=== PATIENT | male | born 1980 | race Hispanic/Latino ===

== ENCOUNTER → 2020-01-16 | Day surgery (SDC) | payer OTHER ==
[~2020-01-16] MED LIST: ACETAMINOPHEN 1000 MG/100 ML IV ONE; BACITRACIN 50,000 UNIT VIAL ONE; BUPIVACAINE HCL 0.5% INJ 30 ML VIAL INJ ONE; CEFAZOLIN SOD 1 GM/NS 50ML 100 ML IV ONE; DEXAMETHASONE SOD PHOS INJ 4 MG/ML VIAL ONE; FAMOTIDINE 20 MG/2 ML VIAL IV ONE; FENTANYL CITRATE/PF 100MCG/2 ML INJ ONE; GLYCOPYRROLATE INJ 0.2 MG/ML VIAL ONE; HYDROCODONE/APAP 5MG-325MG TAB ONE; IBUPROFEN 800MG/ 200ML 200 ML IV ONE; IBUPROFEN400 MG PO; LIDOCAINE HCL (LTA) 4 ML SOLN ONE; LIDOCAINE HCL 2% LOCAL INJ 5 ML SDV VIAL INJ ONE; MIDAZOLAM HCL 2 MG/2 ML VIAL ONE; MUPIROCIN 2% OINT 22 GM TUBE ONE; NEOSTIGMINE 1 MG/ML 10ML VIAL ONE; ONDANSETRON HCL INJ 2MG/ML 2ML 2 MG/ML VIAL ONE; PROPOFOL IV EMULSION 10 MG/ML 20 ML VIAL ONE; ROCURONIUM BROMIDE 10 MG/ML 5ML VIAL ONE; SEVOFLURANE INHAL SOLN 250 ML PEN BTL ONE; TYLENOL WITH C1 EACH PO
--- NOTE | 2020-01-16 07:10 | NUR ---
SPIRITUAL CARE - Pre-Surgery Assessment: Pt in bed. Pt's at bedside. Pt reported supportive attention from family and friends. Intervention: I provided pastoral presence, hospitality, and sympathetic listening. I acquainted pt with availability of application consultant while hospitalized. Outcome: Pt expressed appreciation for visit. No need for follow up indicated at this time. CAYETANO De Lunalain Spiritual Care Department O: [phone] Pager: [phone])
[2020-01-16 11:50] VITALS: BP 142/98
--- NOTE | 2020-01-16 19:08 | Operative Report ---
DATE OF PROCEDURE: 01/16/2020 SURGEON: Preeti Mendoza DPM FLOOR REPRESENTATIVE: None. PREOPERATIVE DIAGNOSIS: Complete rupture of the left Achilles tendon. POSTOPERATIVE DIAGNOSIS: Complete rupture of the left Achilles tendon. PROCEDURE: Primary repair of the left Achilles tendon rupture. PATHOLOGY: None. ANESTHESIA: General anesthetic with a local block consisting of 20 mL of 0.5 Marcaine plain. COMPLICATIONS: None. CONDITION: Stable. MATERIALS: Achilles tendon from [employer], [place] [id number], expiration date 12/05/2024, and then an AlloWrap DS wet, 4 x 4 cm, lot #[id number], reference #[id number], expiration May 01, 2021. PROCEDURE IN DETAIL: Under mild sedation, the patient was brought to the operative room, placed on the operating table in the supine position. Following IV sedation, anesthesia was obtained. At this point, the foot was prepped and draped. The patient was positioned in a prone position and the leg was lowered to the table. Attention was then directed to the posterior aspect of the left foot, where a linear incision was made overlying the area of the ruptured tendon. The incision measured approximately 9 cm and was taken down to the level of the rupture tenderness point. There was noted to be a large hematoma. The hematoma was evacuated. The area was then flushed with copious irrigation with bacitracin. using two FiberWire at the distal and the proximal rupture end. It was then brought together, suturing the ends together. The area was then wrapped with amniotic tissue to promote healing of the area and to promote the adhesions. Then, a piece of the Achilles tendon was also used to reinforce the tear. It was secured utilizing 2-0 Vicryl. The area was then flushed with copious amount of normal sterile solution. There was noted to be dorsiflexion of the tendon. The tendon was repaired through and through. Tear was then flushed with copious amount of normal sterile saline solution. The area was then closed closing the deepest layer with 3-0 Vicryl, 4-0 Vicryl, and 4-0 nylon. Clean dressing was applied consisting of Adaptic ointment, 4x4s, Webril, posterior splint was applied, and was secured utilizing an Joe bandage. The patient tolerated the procedure and anesthesia well without complications and was transported to recovery room with vital signs stable and vascular status intact. The patient was discharged home when he meets criteria. He was given instructions to be strictly nonweightbearing, to ice and elevate the foot while at rest, to call the office if any questions, concerns, or new problems arise. JUSTIN Aguayo/EMORYL /[id number]
== END | disposition home or self-care (01) ==
LOC: OR 06:11 → EDBD 08:30
PROVIDERS: ATTEND Podiatrist Foot & Ankle Surgery
DX: S86.012A Strain of left Achilles tendon, initial encounter (principal); X58.XXXA Exposure to other specified factors, initial encounter
CPT/HCPCS: 28200; J0131; J0690; J1100; J2001; J2250; J2405; J2704; J2710; J3010; Q4150

== ENCOUNTER 2020-05-10 09:48 | Outpatient (RCR) | payer OTHER ==
[~2020-05-10 09:48] MED LIST changes: -ACETAMINOPHEN 1000 MG/100 ML IV ONE; -BACITRACIN 50,000 UNIT VIAL ONE; -BUPIVACAINE HCL 0.5% INJ 30 ML VIAL INJ ONE; -CEFAZOLIN SOD 1 GM/NS 50ML 100 ML IV ONE; -DEXAMETHASONE SOD PHOS INJ 4 MG/ML VIAL ONE; -FAMOTIDINE 20 MG/2 ML VIAL IV ONE; -FENTANYL CITRATE/PF 100MCG/2 ML INJ ONE; -GLYCOPYRROLATE INJ 0.2 MG/ML VIAL ONE; -HYDROCODONE/APAP 5MG-325MG TAB ONE; -IBUPROFEN 800MG/ 200ML 200 ML IV ONE; -LIDOCAINE HCL (LTA) 4 ML SOLN ONE; -LIDOCAINE HCL 2% LOCAL INJ 5 ML SDV VIAL INJ ONE; -MIDAZOLAM HCL 2 MG/2 ML VIAL ONE; -MUPIROCIN 2% OINT 22 GM TUBE ONE; -NEOSTIGMINE 1 MG/ML 10ML VIAL ONE; -ONDANSETRON HCL INJ 2MG/ML 2ML 2 MG/ML VIAL ONE; -PROPOFOL IV EMULSION 10 MG/ML 20 ML VIAL ONE; -ROCURONIUM BROMIDE 10 MG/ML 5ML VIAL ONE; -SEVOFLURANE INHAL SOLN 250 ML PEN BTL ONE
== END 2020-05-21 ==
LOC: PT 09:48
PROVIDERS: ATTEND Specialist
DX: M25.511 Pain in right shoulder (principal); M25.611 Stiffness of right shoulder, not elsewhere classified; M62.81 Muscle weakness (generalized)